=== PATIENT | male | born 1950 | race Caucasian/White ===

== ENCOUNTER → 2018-12-30 | Day surgery (SDC) | payer OTHER ==
[~2018-12-30] MED LIST: ATORVASTATIN CA10 MG PO; B&O 60MG R/S 60 MG SUPP PR ONE; CEFTRIAXONE SOD 1 GM/NS 50 ML 50 ML IV ONE; DIOVAN80 MG PO; FENTANYL CITRATE/PF 100MCG/2 ML INJ ONE; FLOMAX0.4 MG PO; GENTAMICIN 80MG/NS 100 ML 200 ML IV ONE; GLIMEPIRIDE2 MG PO; HYDROMORPHONE 2MG/ML 2 MG/ML ML ONE; IOPAMIDOL 610MG/1ML 300 MG/ML VIAL IV ONE; LIDOCAINE HCL 2% JELLY 5 ML TUBE ONE; LIDOCAINE HCL 2% LOCAL INJ 5 ML SDV VIAL INJ ONE; METFORMIN HCL500 MG PO; MIDAZOLAM HCL 2 MG/2 ML VIAL ONE; MONTELUKAST SOD10 MG PO; ONDANSETRON HCL INJ 2MG/ML 2ML 2 MG/ML VIAL ONE; PANTOPRAZOLE SO40 MG PO; PROPOFOL IV EMULSION 10 MG/ML 20 ML VIAL ONE; SEVOFLURANE INHAL SOLN 250 ML PEN BTL ONE
--- OUTSIDE RECORDS SUMMARY | 2018-12-30 06:02 | XMS REPORT | Summary of Care ---
Author Author [facility] - Health Organization [facility] - Health Address Unknown Phone Unavailable Care Team Providers Care Egg Processor Name Role Phone Pcp, Patient Does Not Have A PCP Reason for Referral * (Routine) Referred By Contact Referred To Contact Status Reason Specialty Diagnoses / Procedures Shilpa Cui MD [address] [place] [phone] New Request Vascular Surgery Diagnoses Claudication P rocedures ULTRASOUND AORTA BY VASCULAR LAB * (Routine) Referred By Contact Referred To Contact Status Reason Specialty Diagnoses / Procedures Shilpa Cui MD [address] [place] [address] 08829 New Request Vascular Surgery Diagnoses Claudication P rocedures SIVAKUMAR MULTI LEVEL BY VASCULAR LAB Reason for Visit * Reason Comments Evaluation New Patient Establish care Encounter Details Care Team Description Date Type Department Shilpa Cui MD [address] [place] [address] [id number] PAD (peripheral artery disease) (Primary Dx); Claudication; Cigarette smoker; Prediabetes; Hyperlipidemia, unspecified hyperlipidemia type; Obesity (BMI 30-39.9) 12/22/2018 Office Visit [facility]- [address] [address] Allergies Comments Active Allergy Reactions Severity Noted Date Sulfa (Sulfonamide Unknown - See 06/25/2018 Antibiotics) comments documented as of this encounter (statuses as of 12/22/2018) Medications End Date Status Medication Sig Dispensed Refills Start Date Active montelukast 10 mg Take 1 tablet 30 tablet 2 tabletIndications: Nasal by mouth 9 congestion daily. Active valsartan 160 mg tablet Take 160 mg 0 by mouth 9 daily. Active tamsulosin 0.4 mg 24 hr TAKE ONE capsule CAPSULE BY 9 MOUTH EVERY DAY 30 MINUTES AFTER SUPPER Active dutasteride 0.5 mg TAKE ONE 1 capsule CAPSULE BY 9 MOUTH EVERY DAY Active metformin ER 500 mg 24 hr TAKE 2 0 tablet TABLETS BY 9 MOUTH TWICE A DAY WITH FOOD Active glimepiride 4 mg tablet 1 TABLET WITH 0 BREAKFAST OR 9 THE FIRST MAIN MEAL OF THE DAY ONCE A DAY ORALLY 90 DAYS Active atorvastatin 40 mg Take 1 tablet 30 tablet 3 tabletIndications: PAD by mouth 9 (peripheral artery daily. disease) Active aspirin 81 mg EC Take 1 tablet 0 tabletIndications: PAD by mouth 9 (peripheral artery daily. disease) 12/22/2018 Discontinued atorvastatin 10 mg tablet Take 10 mg by 0 mouth daily. 9 documented as of this encounter (statuses as of 12/22/2018) Active Problems Not on filedocumented as of this encounter (statuses as of 12/22/2018) Social History Date Tobacco Use Types Packs/Day Years Used Current Every Day Smoker 1 50 Smokeless Tobacco: Never Used Drinks/Week oz/Week Comments Alcohol Use Never Alcohol Habits Answer Date Recorded How often do you have a drink containing alcohol? Never 12/22/2018 How many drinks containing alcohol do you have on Not asked a typical day when you are drinking? How often do you have six or more drinks on one Not asked occasion? Sex Assigned at Date Recorded Not on file Industry Job Start Date Occupation Not on file Not on file Not on file Travel End Travel History Travel Start No recent travel history available. documented as of this encounter Last Filed Vital Signs Reading Time Taken Comments Vital Sign 125/80 12/22/2018 1:38 PM CDT Blood Pressure 73 12/22/2018 1:38 PM CDT Pulse 36.7 C (98.1 F) 12/22/2018 1:38 PM CDT Temperature 16 12/22/2018 1:38 PM CDT Respiratory Rate 99% 12/22/2018 1:38 PM CDT Oxygen Saturation - - Inhaled Oxygen Concentration 95.1 kg (209 lb 11.2 oz) 12/22/2018 1:38 PM CDT Weight 177.8 cm (5' 10") 12/22/2018 1:38 PM CDT Height 30.09 12/22/2018 1:38 PM CDT Body Mass Index documented in this encounter Patient Instructions * Patient Instructions* Shilpa Cui MD - 12/22/2018 2:00 PM CDT Take aspirin 81 mg daily Increase atorvastatin to 40 mg daily documented in this encounter Progress Notes * Sharyn Lawrence - 12/22/2018 2:00 PM CDT 68 year old male has been identified by and name. Previous/Current Encounter Diagnosis: ICD-10-CM ICD-9-CM 1. PAD (peripheral artery disease) I73.9 443.9 2. Claudication I73.9 443.9 12 Lead EKG was performed as ordered. The patient tolerated the procedure well. was notified and provided with a copy of the EKG for review. * Shilpa uCi MD - 12/22/2018 2:00 PM CDT CARDIOLOGY CLINIC NOTE 12/22/2018 Reason for Referral/Presenting Complaint: PAD PCP: Dr. Coles History of Present Illness: Rashi Valle Jr. is a 68 years old male with history of current heavy smo nayan, prediabetes/DM, HLD, mild obesity etc. He is here for PAD evaluation. For the past 9 months he has been feeling leg/thigh fatigue with varying degree of a ctivities. No resting pain. ECHO was normal. LE arterial duplex showed abnormal flow velocity and Doppler waveforms. Review of Systems: General: (-) fever, (-) chills, (-) weight change, (-) dizziness, (-) fatigue Skin: (-) rash HEENT: (-) headache, (-) change in vision Neck: (-) difficulty swallowing Heme: negative Resp: (-) cough, (-) dyspnea on exertion Cardio: (-) chest pain, (-) palpitations, (-) syncope GI: (-) vomiting, (-) diarrhea : negative Endo: (-) diabetes, (-) thyroid disease Neuro: (-) numbness, (-) tingling, (-) weakness Back: (-) pain JACQUIE: (-) muscle pain, (+) claudication Psych: (-) anxiety, (-) depression Past Medical History: No past medical history on file. Current Medications: Current Outpatient Medications Medication Sig Dispense Refill aspirin 81 mg EC tablet Take 1 tablet by mouth daily. atorvastatin 40 mg tablet Take 1 tablet by mouth daily. 30 tablet 3 dutasteride 0.5 mg capsule TAKE ONE CAPSULE BY MOUTH EVERY DAY 1 glimepiride 4 mg tablet 1 TABLET WITH BREAKFAST OR THE FIRST MAIN MEAL OF ONCE A DAY ORALLY 90 DAYS 0 metformin ER 500 mg 24 hr tablet TAKE 2 TABLETS BY MOUTH TWICE A DAY WITH FO OD 0 valsartan 160 mg tablet Take 160 mg by mouth daily. 0 tamsulosin 0.4 mg 24 hr capsule TAKE ONE CAPSULE BY MOUTH EVERY DAY 30 MINUT ES AFTER SUPPER 1 montelukast 10 mg tablet Take 1 tablet by mouth daily. 30 tablet 2 No current facility-administered medications for this visit. Social History: Social History Socioeconomic History Marital status: Spouse name: Not on file Number of children: Not on file Years of education: Not on file Highest education level: Not on file Occupational History Not on file Social Needs Financial resource strain: Not on file Food insecurity: Worry: Not on file Inability: Not on file Transportation needs: Medical: Not on file Non-medical: Not on file Tobacco Use Smoking status: Current Every Day Smoker Packs/day: 1.00 Years: 50.00 Pack years: 50.00 Smokeless tobacco: Never Used Substance and Sexual Activity Alcohol use: Never Frequency: Never Drug use: Never Sexual activity: Not on file Lifestyle Physical activity: Days per week: Not on file Minutes per session: Not on file Stress: Not on file Relationships Social connections: Talks on phone: Not on file Gets together: Not on file Attends mu-ism service: Not on file Active member of club or organization: Not on file Attends meetings of clubs or organizations: Not on file Relationship status: Not on file Intimate partner violence: Fear of current or ex partner: Not on file Emotionally abused: Not on file Physically abused: Not on file Forced sexual activity: Not on file Other Topics Concern Not on file Social History Narrative Not on file Family History Family History Problem Relation Age of Onset No Significant Medical Problems Mother No Significant Medical Problems Father Physical Examination: BP 125/80 (BP Location: Right arm, Patient Position: Sitting, BP CUFF SIZE: Adul t Medium) | Pulse 73 | Temp 36.7 C (98.1 F) (Temporal Artery) | Resp 16 | Ht 5' 10" (1.778 m) | Wt 209 lb 11.2 oz (95.1 kg) | SpO2 99% | BMI 30.09 kg /m Constitutional: alert and oriented x 3 (person, place and date/time); no apparen t distress ENT: normocephalic atraumatic, supple, no lymphadenopathy, no bruits, no JVD Lungs: clear to auscultation bilaterally Cardiovascular: S1, S2 normal, regular; no murmurs, rubs or gallops GI: soft; non-tender; non-distended; normoactive bowel sounds : not examined Musculoskeletal: Extremities: no clubbing, cyanosis, or edema, diminished ankle and pedal pulses on the left side Skin: no rashes Neuro: no focal deficits Cardiovascular testing: EKG: Normal sinus rhythm. Normal EKG. Echocardiogram: OSH 2019--Normal LVEF. Normal valves. LE arterial duplex--Low velocity with biphasic Doppler waveform. Moderate to sev ere PAD. Assessment/Plan: ICD-10-CM ICD-9-CM 1. PAD (peripheral artery disease) I73.9 443.9 2. Claudication I73.9 443.9 3. Cigarette smoker F17.210 305.1 4. Prediabetes R73.03 790.29 5. Hyperlipidemia, unspecified hyperlipidemia type E78.5 272.4 6. Obesity (BMI 30-39.9) E66.9 278.00 PAD--Heavy smoker. Bilateral claudication. Reduced ankle pulses. Arterial duplex showed reduced blood flow. However there is no increased velocity in the legs. Suspect inflow disease. Will get Aorta US to assess distal aorta and iliac arter y. Will get SIVAKUMAR as well. Advised to add ASA 81 mg daily. Will increase Lipitor t o 40 mg daily. May need Vascular Surgery referral after testing. Smoking cessation education--4 mins. He will reduce cigs. Patient was counseled for lifestyle modifications including: diet, exercise, yehuda ght loss and smoking cessation. RTC 3 months Thank you for allowing us to participate in the care of your patient. Please fee l free to contact us for any questions or if we can be of further assistance. Shilpa Cui MD, [facility], [facility] [employer], Division of Cardiology [facility] ; Pager documented in this encounter Plan of Treatment Care Team Description Date Type Specialty Shilpa Cui MD [address] [place] [phone] 03/30/2019 Office Visit Cardiology Health Maintenance Due Date Last Done Comments HEPATITIS C (HCV) SCREEN 1950 DTaP,Tdap,and Td Vaccines 09/09/1971 (1 - Tdap) COLONOSCOPY 2002 Zoster Recombinant 2002 Vaccine (SHINGRIX) (1 of 2) Medicare Wellness Visit 2017 PNEUMOCOCCAL VACCINES 65+ 2017 (1 of 2 - PCV13) INFLUENZA VACCINE 01/22/2019 documented as of this encounter Results Not on filedocumented in this encounter Visit Diagnoses Diagnosis PAD (peripheral artery disease) - Primary Unspecified disorders of arteries and arterioles Claudication Peripheral vascular disease, unspecified Cigarette smoker Tobacco use disorder Prediabetes Other abnormal glucose Hyperlipidemia, unspecified hyperlipidemia type Obesity (BMI 30-39.9) Obesity, unspecified documented in this encounter Insurance Type Payer Benefit Subscriber ID Effective Phone Address Plan / Dates Group HMO/PPO/POS [facility] [id number] 2018- SERVICES HEALTHCARE Present SHARED SERVICE (Home) [place] [address] documented as of this encounter
--- OUTSIDE RECORDS SUMMARY | 2018-12-30 06:02 | XMS REPORT | Summary of Care ---
Author Author [facility] - Health Organization [facility] - Health Address Unknown Phone Unavailable Care Team Providers Care Pipe Organ Mechanic Apprentice Name Role Phone Pcp, Patient Does Not Have A PCP Reason for Visit * Reason Comments Refill Request Encounter Details Care Team Description Date Type Department Lilian Rojas PA-C [address] [id number] Refill Request 12/20/2018 Refill [facility]- [address] [phone] Allergies Comments Active Allergy Reactions Severity Noted Date Sulfa (Sulfonamide Unknown - See 06/25/2018 Antibiotics) comments documented as of this encounter (statuses as of 12/24/2018) Medications End Date Status Medication Sig Dispensed Refills Start Date Active montelukast 10 mg Take 1 tablet 30 tablet 2 tabletIndications: Nasal by mouth 9 congestion daily. documented as of this encounter (statuses as of 12/24/2018) Active Problems Not on filedocumented as of this encounter (statuses as of 12/24/2018) Social History Date Tobacco Use Types Packs/Day Years Used Never Assessed Sex Assigned at Date Recorded Not on file Industry Job Start Date Occupation Not on file Not on file Not on file Travel End Travel History Travel Start No recent travel history available. documented as of this encounter Last Filed Vital Signs Not on filedocumented in this encounter Plan of Treatment Care Team Description Date Type Specialty Shilpa Cui MD [address] [facility] [address] [place] [phone] 03/30/2019 Office Visit Cardiology Health Maintenance Due Date Last Done Comments HEPATITIS C (HCV) SCREEN 1950 DTaP,Tdap,and Td Vaccines 09/09/1971 (1 - Tdap) COLONOSCOPY 2002 Zoster Recombinant 2002 Vaccine (SHINGRIX) (1 of 2) LUNG CANCER SCREEN: 09/09/2007 Recommended for age 55-80 with 30 + pack year history Medicare Wellness Visit 2017 PNEUMOCOCCAL VACCINES 65+ 2017 (1 of 2 - PCV13) INFLUENZA VACCINE 01/22/2019 documented as of this encounter Results Not on filedocumented in this encounter Visit Diagnoses Diagnosis Nasal congestion Other diseases of nasal cavity and sinuses documented in this encounter Insurance Type Payer Benefit Subscriber ID Effective Phone Address Plan / Dates Group HMO/PPO/POS [facility] [id number] 2018- SERVICES HEALTHCARE Present SHARED SERVICE documented as of this encounter
--- OUTSIDE RECORDS SUMMARY | 2018-12-30 06:02 | XMS REPORT | Summary of Care ---
Author Author [facility] - Health Organization [facility] - Health Address Unknown Phone Unavailable Care Team Providers Care Bonderite Operator Name Role Phone Pcp, Patient Does Not Have A PCP Encounter Details Care Team Description Date Type Department Doctor Unassigned, [place] [address] [place] [phone] 12/22/2018 Orders Only [facility] [address] [place] [address] Allergies Comments Active Allergy Reactions Severity Noted [...] Description Date Type Specialty Shilpa Cui MD [address] [place] [address] [address] [place], [place] [address] 12/22/2018 Office Visit Cardiology Health Maintenance Due Date Last Done Comments HEPATITIS C (HCV) SCREEN 1950 DTaP,Tdap,and Td Vaccines 09/09/1971 (1 - Tdap) COLONOSCOPY 2002 Zoster Recombinant 2002 Vaccine (SHINGRIX) (1 of 2) Medicare Wellness Visit 2017 PNEUMOCOCCAL VACCINES 65+ 2017 (1 of 2 - PCV13) INFLUENZA VACCINE 01/22/2019 documented as of this encounter Procedures Comments Procedure Name Priority Date/Time Associated Diagnosis NO SHOW OR MISSED Routine 12/22/2018 APPOINTMENT POLICY 1:36 PM CDT ACKNOWLEDGEMENT documented in this encounter Results Not on filedocumented in this encounter Insurance Type Payer Benefit Subscriber ID Effective Phone Address Plan / Dates Group HMO/PPO/POS [facility] [id number] 2018- SERVICES HEALTHCARE Present SHARED SERVICE documented as of this encounter
--- OUTSIDE RECORDS SUMMARY | 2018-12-30 06:02 | XMS REPORT | Summary of Care ---
Author Author [facility] - Health Organization [facility] - Health Address Unknown Phone Unavailable Care Team Providers Care Block Cableman Name Role Phone Pcp, Patient Does Not Have A PCP Encounter Details Care Team Description Date Type Department Doctor Unassigned, [place] [address] [place] [phone] 08/23/2018 Orders Only [facility] [address] [place] [address] Allergies Comments Active Allergy Reactions Severity Noted Date Sulfa (Sulfonamide Unknown - See 06/25/2018 Antibiotics) comments documented as of this encounter (statuses as of 12/23/2018) Medications End Date Status Medication Sig Dispensed Refills Start Date Active montelukast 10 mg Take 1 tablet 30 tablet 2 tabletIndications: Nasal by mouth 9 congestion daily. documented as of this encounter (statuses as of 12/23/2018) Active Problems Not on filedocumented as of this encounter (statuses as of 12/23/2018) Social History Date Tobacco Use Types Packs/Day [...] Description Date Type Specialty Shilpa Cui MD [address] [place] [address] [address] [place], [place] [phone] 03/30/2019 Office Visit Cardiology Health Maintenance Due [...] Comments Procedure Name Priority Date/Time Associated Diagnosis REFERRAL- Routine 08/23/2018 REQUEST/RESPONSE 12:01 AM CDT documented in this encounter Results Not on filedocumented in this encounter Insurance Type Payer Benefit Subscriber ID Effective Phone Address Plan / Dates Group HMO/PPO/POS [facility] [id number] 2018- SERVICES HEALTHCARE Present SHARED SERVICE documented as of this encounter
--- OUTSIDE RECORDS SUMMARY | 2018-12-30 06:02 | XMS REPORT ---
Author [facility] Address Unknown Phone Unavailable Care Team Providers Care Manager Cost Name Role Phone LAWRENCE MANN Unavailable Unavailable Problems This patient has no known problems. Allergies, Adverse Reactions, Alerts This patient has no known allergies or adverse reactions. Medications This patient has no known medications. Results Test Description Test Time Test Comments Text Results Atomic Results Result Comments CHEST 2 VIEWS 2018-11-15 15:47:00 [place] [address] Patient Name: MAE NUGENT JR MR #: [id number] : 1950 Age/Sex: 68/M Req #: [id number] [facility] Physician: Ordered by: LAWRENCE MANN MD Report #: [id number] Location: OR Room/Bed: Procedure: [id number] DX/CHEST 2 VIEWS Exam Date: 11/15/18 Exam Time: 1537 REPORT STATUS: Signed EXAM: CHEST 2 VIEWS, PA and lateral DATE: 11/15/2018 Time stamp on exam: 3:32 PM INDICATION: Preoperative COMPARISON: None FINDINGS: LINES/TUBES: None LUNGS: Lungs are mildly hyperexpanded. No consolidations or edema. Calcified granuloma in the right upper lobe. PLEURA: No effusions or pneumothorax. HEART AND MEDIASTINUM: Normal size and contour. BONES AND SOFT TISSUES: No acute findings. Degenerative changes of the spine. IMPRESSION: No acute thoracic abnormality. Signed by: Dr. Salvador Moody DO on 11/15/2018 3:48 PM Dictated By: SALVADOR MOODY DO 1548 Transcribed By: EVELINE on 11/15/18 1548 COPY TO: LAWRENCE MANN MD
--- OUTSIDE RECORDS SUMMARY | 2018-12-30 06:02 | XMS REPORT | Summary of Care ---
Author Author [facility] - Health Organization [facility] - Health Address Unknown Phone Unavailable Care Team Providers Care Customer Service Technician Name Role Phone Pcp, Patient Does Not Have A PCP Reason for Referral * (Routine) Referred By Contact Referred To Contact Status Reason Specialty Diagnoses / Procedures Shilpa Cui MD [address] [place] [phone] New Request Vascular Surgery Diagnoses Claudication P rocedures ULTRASOUND AORTA BY VASCULAR LAB * (Routine) Referred By Contact Referred To Contact Status Reason Specialty Diagnoses / Procedures Shilpa Cui MD [address] [place] [phone] New Request Vascular Surgery Diagnoses Claudication P rocedures SIVAKUMAR MULTI LEVEL BY VASCULAR LAB Reason for Visit * Reason Comments Evaluation New Patient Establish care Encounter Details Care Team Description Date Type Department Shilpa Cui MD [address] [place] [address] [phone] PAD (peripheral artery disease) (Primary Dx); Claudication; Cigarette smoker; Prediabetes; Hyperlipidemia, unspecified hyperlipidemia type; Obesity (BMI 30-39.9) 12/22/2018 Office Visit [facility] [address] [phone] Allergies Comments Active Allergy Reactions Severity Noted [...] of the EKG for review. * Shilpa Cui MD - 12/22/2018 2:00 PM CDT CARDIOLOGY [...] file Gets together: Not on file Attends restorationism service: Not on file Active member of [...] be of further assistance. Shilpa Cui MD, [facility], [place] [place], Division of Cardiology [facility] ; Pager documented in this encounter Plan of Treatment Care Team Description Date Type Specialty Shilpa Cui MD [address] [place] [phone] 03/30/2019 Office Visit Cardiology Health Maintenance [...] Phone Address Plan / Dates Group HMO/PPO/POS [facility] [id number] 2018- SERVICES HEALTHCARE Present SHARED SERVICE (Home) [place] [address] documented as of this encounter
[2018-12-30 07:10] LABS: BASOPHILS # (AUTO) 0.1 (0.0-0.1); BASOPHILS % 1.1 % (0.0-1.0); EOSINOPHILS # (AUTO) 0.4 (0.0-0.4); HEMATOCRIT 51.9 % (38.2-49.6); HEMOGLOBIN 17.5 g/dL (14.0-18.0); LYMPHOCYTES # (AUTO) 2.3 (1.0-3.2); LYMPHOCYTES % 27.5 % (18.0-39.1); MEAN CORPUSCULAR HEMOGLOBIN 30.3 pg (28-32); MEAN CORPUSCULAR HGB CONC 33.7 g/dL (31-35); MEAN CORPUSCULAR VOLUME 89.9 fL (81-99); MONOCYTES # (AUTO) 0.7 (0.2-0.8); NEUTROPHILS # (AUTO) 4.7 (2.1-6.9); PLATELET COUNT 175 x10e3/uL (140-360); RED BLOOD COUNT 5.77 x10e6/uL (4.3-5.7); RED CELL DISTRIBUTION WIDTH 12.7 % (11.7-14.4)
[2018-12-30 07:29] LABS: ANION GAP 13.1 mmol/L (8-16); BLOOD UREA NITROGEN 13 mg/dL (7-26); BUN/CREATININE RATIO 15 (6-25); CALCIUM 9.8 mg/dL (8.4-10.2); CARBON DIOXIDE 25 mmol/L (22-29); CHLORIDE 106 mmol/L (98-107); CREATININE, SERUM 0.86 mg/dL (0.72-1.25); EST GLOMERULAR FILTRATION RATE > 60 ML/MIN (60-); GLUCOSE 146 mg/dL (74-118); POTASSIUM 4.1 mmol/L (3.5-5.1); SODIUM 140 mmol/L (136-145)
[2018-12-30 10:30] VITALS: BP 121/79
--- NOTE | 2019-02-21 04:40 | Operative Report ---
DATE OF PROCEDURE: 12/30/2018 SURGEON: Hugh Little MD PREOPERATIVE DIAGNOSES: 1. Obstructive benign prostatic hypertrophy. 2. History of urinary tract infections. 3. History of urolithiasis. POSTOPERATIVE DIAGNOSES: 1. Obstructive benign prostatic hypertrophy. 2. History of urinary tract infections. 3. History of urolithiasis. OPERATION PERFORMED: 1. Cystourethroscopy with bilateral ureteral catheterization and retrograde ureteropyelography (separate procedure performed for urinary tract infections and urolithiasis). 2. Interpretation of retrograde ureteropyelography. 3. Supervision of fluoroscopy, no radiologist present. 4. Cystourethroscopy with implantation of 4 UroLift implants (separate procedure performed for the BPH). ANESTHESIA: General. COMPLICATIONS: None. CLINICAL SUMMARY: Rashi Valle is a 68-year-old male with a history of urolithiasis. He has a history of right renal cell carcinoma as well. He has history of elevated PSA, status post negative prostate biopsies. His symptomatic BPH and is brought for the above procedures. He is aware of the risks of bleeding, infection, injury to adjacent structures, need for additional procedures, and elected to proceed. OPERATIVE PROCEDURE IN DETAIL: Informed consent was verified. Rashi Valle was properly identified, taken to the operating room, and placed on the cystoscopy table in supine position. Anesthesia was uneventfully begun. The patient was then carefully and gently repositioned in the dorsal lithotomy position with all pressure points well padded. His genitalia were prepared and draped in usual sterile fashion. A 22.5-Rwandan cystoscope sheath with the visual obturator in place was atraumatically inserted into the patient's urethra, was guided down unremarkably urethra through the normal sphincteric region through the prostate bed, which was significant for bilobar prostatic hypertrophy with kissing lateral lobes. We entered the patient's bladder and drained it. Panendoscopy revealed fine sands throughout the bladder with no large stones and no tumors. Grade 2 trabeculations were noted. The sand was evacuated from the bladder. An 8-Rwandan catheter was used to cannulate each ureter and retrograde ureteropyelogram was performed. Interpretation of retrograde ureteropyelography contrast was instilled in retrograde fashion bilaterally. There were no tumors, no stones, and no diverticula. Unobstructed drainage was observed bilaterally fluoroscopically. The cystoscope was withdrawn. The 20-Rwandan cystoscope sheath with the visual obturator in place was atraumatically inserted. We deployed 4 UroLift implants. We deployed anterolaterally on each side, 2 were placed 1.5 cm distal to the bladder neck and 2 were placed at the level of the verumontanum. This resulted in continuous anterior channel, which was open. There was oozing from the prostate bed in the location of the UroLift implants. Therefore, an 18-Rwandan coude tip Sheikh catheter was placed. It was irrigated to and fro. Belladonna and opium suppository were placed revealing a 40 g prostate, that was smooth and nonfluctuant without any nodules. The patient was then uneventfully reversed from anesthesia and taken to recovery room in stable condition. There were no complications to the procedure. The patient tolerated the procedure well. Estimated blood loss was minimum. Exclusive postop instructions were given. We will follow the patient up in the office. At which point in time, we will perform uroflowmetry and bladder ultrasonography. Hugh Little MD [place]/MODL /[id number]
== END | disposition home or self-care (01) ==
LOC: OR 05:59
PROVIDERS: ATTEND Urology
DX: N40.0 Benign prostatic hyperplasia without lower urinary tract symptoms (principal); N13.8 Other obstructive and reflux uropathy; N32.89 Other specified disorders of bladder; G47.33 Obstructive sleep apnea (adult) (pediatric); I10 Essential (primary) hypertension; E11.9 Type 2 diabetes mellitus without complications; K21.9 Gastro-esophageal reflux disease without esophagitis; Z88.2 Allergy status to sulfonamides; F17.210 Nicotine dependence, cigarettes, uncomplicated; Z87.440 Personal history of urinary (tract) infections; Z87.442 Personal history of urinary calculi; Z85.528 Personal history of other malignant neoplasm of kidney; Z79.84 Long term (current) use of oral hypoglycemic drugs
CPT/HCPCS: 52005; C9740; 36415; 74420; 80048; 85025; C1758; J0696; J1580; J2001; J2250; J2405; J3010; L8699

== ENCOUNTER 2021-01-06 05:30 | Inpatient (IN) | payer MEDICARE, OTHER ==
[2021-01-03 09:39] LABS: BASOPHILS # (AUTO) 0.1 (0.0-0.1); BASOPHILS % 0.8 % (0.0-1.0); EOSINOPHILS # (AUTO) 0.2 (0.0-0.4); EOSINOPHILS % 2.3 % (0.0-6.0); HEMATOCRIT 52.1 % (38.2-49.6); HEMOGLOBIN 17.1 g/dL (14.0-18.0); LYMPHOCYTES # (AUTO) 2.5 (1.0-3.2); LYMPHOCYTES % 23.4 % (18.0-39.1); MEAN CORPUSCULAR HEMOGLOBIN 30.5 pg (28-32); MEAN CORPUSCULAR HGB CONC 32.8 g/dL (31-35); MEAN CORPUSCULAR VOLUME 92.9 fL (81-99); MONOCYTES # (AUTO) 0.7 (0.2-0.8); MONOCYTES % 6.5 % (4.4-11.3); NEUTROPHILS # (AUTO) 7.1 (2.1-6.9); NEUTROPHILS % 66.7 % (38.7-80.0); PLATELET COUNT 198 x10e3/uL (140-360); RED BLOOD COUNT 5.61 x10e6/uL (4.3-5.7); RED CELL DISTRIBUTION WIDTH 12.9 % (11.7-14.4)
[2021-01-03 10:14] LABS: ANION GAP 16.3 mmol/L (8-16); CALCIUM 9.5 mg/dL (8.4-10.2); CREATININE, SERUM 0.95 mg/dL (0.72-1.25); POTASSIUM 4.3 mmol/L (3.5-5.1)
[~2021-01-06] VITALS: Ht 177.8 cm; Wt 89.8 kg
[~2021-01-06 05:30] MED LIST changes: +AMLODIPINE BESYL5 MG PO; +ASPIRIN81 MG PO; +AVODART0.5 MG PO; -B&O 60MG R/S 60 MG SUPP PR ONE; -CEFTRIAXONE SOD 1 GM/NS 50 ML 50 ML IV ONE; +CETIRIZINE HCL10 M1 PO; -FENTANYL CITRATE/PF 100MCG/2 ML INJ ONE; -GENTAMICIN 80MG/NS 100 ML 200 ML IV ONE; -HYDROMORPHONE 2MG/ML 2 MG/ML ML ONE; -IOPAMIDOL 610MG/1ML 300 MG/ML VIAL IV ONE; +KEPPRA500 MG PO; -LIDOCAINE HCL 2% JELLY 5 ML TUBE ONE; -LIDOCAINE HCL 2% LOCAL INJ 5 ML SDV VIAL INJ ONE; -MIDAZOLAM HCL 2 MG/2 ML VIAL ONE; -ONDANSETRON HCL INJ 2MG/ML 2ML 2 MG/ML VIAL ONE; -PROPOFOL IV EMULSION 10 MG/ML 20 ML VIAL ONE; -SEVOFLURANE INHAL SOLN 250 ML PEN BTL ONE
[2021-01-06] MEDS ORDERED: CEFTRIAXONE 1 GM VIAL ONE (06:08)
[2021-01-06] MEDS ORDERED: SODIUM CHLORIDE 0.9% 50ML 50 ML ONE (06:09)
[2021-01-06] MEDS ORDERED: GENTAMICIN 80MG/NS 100 ML 200 ML IV ONE (06:09)
[2021-01-06] MEDS ORDERED: SODIUM CHLORIDE 0.9% 1000ML 1,000 ML ONE (06:09)
[2021-01-06] MEDS ORDERED: BELLADONNA/OPIUM 30 MG SUPP RC ONE (06:33)
[2021-01-06] MEDS ORDERED: IOPAMIDOL 300MG/ML 50ML INFUS..BTL IV ONE (06:33)
[2021-01-06] MEDS ORDERED: ACETAMINOPHEN/CODEINE 300MG - 30MG TAB PO PRN (09:00)
[2021-01-06] MEDS ORDERED: ONDANSETRON HCL INJ 2MG/ML 2ML 2 MG/ML VIAL IV PRN (09:00)
[2021-01-06] MEDS ORDERED: PHENAZOPYRIDINE HCL 100 MG TAB PO PRN (09:00)
[2021-01-06] MEDS ORDERED: DIPHENHYDRAMINE HCL 25 MG CAP PO PRN (09:00)
[2021-01-06] MEDS: DOCUSATE SODIUM 100 MG CAP PO SCH ×2 (09:00→16:28)
[2021-01-06] MEDS ORDERED: B&O 60MG R/S 60 MG SUPP PR PRN (09:00)
[2021-01-06] MEDS ORDERED: FENTANYL CITRATE/PF 100MCG/2 ML INJ ONE (09:26)
[2021-01-06 10:21] VITALS: BP 157/76
[2021-01-06 10:24] VITALS: BP 157/76
[2021-01-06 10:27] VITALS: BP 157/76
[2021-01-06] MEDS ORDERED: DEXTROSE 50% SYRINGE 50 ML IV PRN (11:15)
[2021-01-06] MEDS: INSULIN LISPRO 100 UNIT/1 ML 3ML VIAL SQ SCH ×3 (11:30→20:05)
[2021-01-06] MEDS: SOD CHL 0.45%/POT CHL 20MEQ 1,000 ML IV SCH ×3 (11:40→20:19)
[2021-01-06 12:33] LABS: BASOPHILS # (AUTO) 0.1 (0.0-0.1); BASOPHILS % 0.4 % (0.0-1.0); EOSINOPHILS % 0.1 % (0.0-6.0); HEMOGLOBIN 16.8 g/dL (14.0-18.0); LYMPHOCYTES # (AUTO) 1.1 (1.0-3.2); LYMPHOCYTES % 9.4 % (18.0-39.1); MEAN CORPUSCULAR HEMOGLOBIN 30.6 pg (28-32); MEAN CORPUSCULAR HGB CONC 32.9 g/dL (31-35); MEAN CORPUSCULAR VOLUME 92.9 fL (81-99); MONOCYTES # (AUTO) 0.2 (0.2-0.8); MONOCYTES % 1.4 % (4.4-11.3); NEUTROPHILS # (AUTO) 10.2 (2.1-6.9); NEUTROPHILS % 88.2 % (38.7-80.0); PLATELET COUNT 186 x10e3/uL (140-360); RED BLOOD COUNT 5.49 x10e6/uL (4.3-5.7); RED CELL DISTRIBUTION WIDTH 12.6 % (11.7-14.4)
[2021-01-06 12:53] LABS: ANION GAP 16.4 mmol/L (8-16); CALCIUM 8.7 mg/dL (8.4-10.2); CREATININE, SERUM 0.88 mg/dL (0.72-1.25); POTASSIUM 4.4 mmol/L (3.5-5.1)
[2021-01-06 14:48] VITALS: BP 145/78
[2021-01-06] MEDS: LEVETIRACETAM 500 MG TAB PO SCH (16:28)
[2021-01-06] MEDS: METFORMIN HCL 500 MG TAB PO SCH (16:28)
[2021-01-06] MEDS: TAMSULOSIN HCL 0.4 MG CAP PO SCH (16:28)
[2021-01-06 20:14] VITALS: BP 130/66
[2021-01-06] MEDS: ATORVASTATIN 20 MG TAB PO SCH (20:14)
[2021-01-06 20:27] VITALS: BP 130/66
[2021-01-07] VITALS (8 sets, daily range): BP systolic 132–167; BP diastolic 69–98
[2021-01-07] MEDS: SOD CHL 0.45%/POT CHL 20MEQ 1,000 ML IV SCH (04:23)
[2021-01-07 05:04] LABS: BASOPHILS % 0.2 % (0.0-1.0); EOSINOPHILS % 0.2 % (0.0-6.0); HEMATOCRIT 46.7 % (38.2-49.6); HEMOGLOBIN 15.5 g/dL (14.0-18.0); LYMPHOCYTES % 12.2 % (18.0-39.1); MEAN CORPUSCULAR HEMOGLOBIN 30.4 pg (28-32); MEAN CORPUSCULAR HGB CONC 33.2 g/dL (31-35); MEAN CORPUSCULAR VOLUME 91.6 fL (81-99); MONOCYTES # (AUTO) 1.3 (0.2-0.8); MONOCYTES % 7.5 % (4.4-11.3); NEUTROPHILS # (AUTO) 13.3 (2.1-6.9); NEUTROPHILS % 79.4 % (38.7-80.0); PLATELET COUNT 200 x10e3/uL (140-360); RED CELL DISTRIBUTION WIDTH 12.6 % (11.7-14.4)
[2021-01-07 05:37] LABS: CALCIUM 8.2 mg/dL (8.4-10.2); CREATININE, SERUM 0.83 mg/dL (0.72-1.25)
[2021-01-07] MEDS: INSULIN LISPRO 100 UNIT/1 ML 3ML VIAL SQ SCH ×4 (07:30→22:17)
[2021-01-07] MEDS: METFORMIN HCL 500 MG TAB PO SCH ×2 (08:15→16:20)
[2021-01-07] MEDS: LEVETIRACETAM 500 MG TAB PO SCH ×2 (08:15→16:20)
[2021-01-07] MEDS: AMLODIPINE BESYLATE 5 MG TAB PO SCH (08:15)
[2021-01-07] MEDS: DOCUSATE SODIUM 100 MG CAP PO SCH ×2 (08:15→16:12)
[2021-01-07] MEDS: TAMSULOSIN HCL 0.4 MG CAP PO SCH ×2 (08:15→16:20)
[2021-01-07] MEDS: PANTOPRAZOLE SOD 40 MG TABEC PO SCH (08:15)
[2021-01-07] MEDS: CEFTRIAXONE 1 GM in SODIUM CHLORIDE 0.9% 50ML 50 ML IV SCH (08:15)
[2021-01-07] MEDS: VALSARTAN 80 MG TAB PO SCH (08:15)
[2021-01-07] MEDS: DUTASTERIDE 0.5 MG CAP PO SCH (08:15)
[2021-01-07] MEDS ORDERED: ONDANSETRON HCL 4 MG ORAL DISINTEGRATING TAB PO PRN (08:30)
[2021-01-07] MEDS: SODIUM CHLORIDE 0.45% 1,000 ML IV SCH ×2 (09:18→22:16)
[2021-01-07] MEDS: ATORVASTATIN 20 MG TAB PO SCH (22:16)
[2021-01-08 00:08] VITALS: BP 141/70
[2021-01-08 04:41] VITALS: BP 138/79
[2021-01-08 04:52] LABS: BASOPHILS # (AUTO) 0.1 (0.0-0.1); BASOPHILS % 0.9 % (0.0-1.0); EOSINOPHILS # (AUTO) 0.2 (0.0-0.4); EOSINOPHILS % 2.2 % (0.0-6.0); HEMATOCRIT 46.3 % (38.2-49.6); HEMOGLOBIN 15.3 g/dL (14.0-18.0); LYMPHOCYTES # (AUTO) 3.2 (1.0-3.2); LYMPHOCYTES % 30.8 % (18.0-39.1); MEAN CORPUSCULAR HEMOGLOBIN 30.5 pg (28-32); MEAN CORPUSCULAR VOLUME 92.4 fL (81-99); MONOCYTES % 9.7 % (4.4-11.3); NEUTROPHILS # (AUTO) 5.8 (2.1-6.9); NEUTROPHILS % 56.1 % (38.7-80.0); PLATELET COUNT 185 x10e3/uL (140-360); RED BLOOD COUNT 5.01 x10e6/uL (4.3-5.7); RED CELL DISTRIBUTION WIDTH 13.1 % (11.7-14.4)
[2021-01-08 05:27] LABS: ANION GAP 11.8 mmol/L (8-16); CALCIUM 8.6 mg/dL (8.4-10.2); CREATININE, SERUM 0.83 mg/dL (0.72-1.25); POTASSIUM 3.8 mmol/L (3.5-5.1)
[2021-01-08 05:47] LABS: MAGNESIUM 1.7 MG/DL (1.3-2.1); PHOSPHORUS 3.1 MG/DL (2.3-4.7)
[2021-01-08] MEDS: INSULIN LISPRO 100 UNIT/1 ML 3ML VIAL SQ SCH ×3 (07:30→17:30)
[2021-01-08 08:57] VITALS: BP 128/81
[2021-01-08] MEDS: LEVETIRACETAM 500 MG TAB PO SCH ×2 (09:00→17:00)
[2021-01-08] MEDS: PANTOPRAZOLE SOD 40 MG TABEC PO SCH (09:00)
[2021-01-08] MEDS: TAMSULOSIN HCL 0.4 MG CAP PO SCH ×2 (09:00→17:00)
[2021-01-08] MEDS: AMLODIPINE BESYLATE 5 MG TAB PO SCH (09:00)
[2021-01-08] MEDS: METFORMIN HCL 500 MG TAB PO SCH ×2 (09:00→17:00)
[2021-01-08] MEDS: DUTASTERIDE 0.5 MG CAP PO SCH (09:00)
[2021-01-08] MEDS: CEFTRIAXONE 1 GM in SODIUM CHLORIDE 0.9% 50ML 50 ML IV SCH (09:00)
[2021-01-08] MEDS: VALSARTAN 80 MG TAB PO SCH (09:00)
[2021-01-08] MEDS: DOCUSATE SODIUM 100 MG CAP PO SCH ×2 (09:00→17:00)
[2021-01-08 09:20] VITALS: BP 128/81
[2021-01-08] MEDS: SODIUM CHLORIDE 0.45% 1,000 ML IV SCH (09:47)
[2021-01-08 12:55] VITALS: BP 145/79
[2021-01-08 16:35] VITALS: BP 117/89
== END 2021-01-08 18:43 | disposition home or self-care (01) | DRG 714 ==
LOC: OR 05:30 → PACU V 08:54 → MED/SURG 10:13
PROVIDERS: ADMIT Internal Medicine; ATTEND Internal Medicine
PROC: 0VB08ZZ Excision of Prostate, Via Natural or Artificial Opening Endoscopic (ICD-10-PCS; 2021-01-06)
PROC: 0T7D8ZZ Dilation of Urethra, Via Natural or Artificial Opening Endoscopic (ICD-10-PCS; 2021-01-06)
PROC: 0T788ZZ Dilation of Bilateral Ureters, Via Natural or Artificial Opening Endoscopic (ICD-10-PCS; principal; 2021-01-06 07:00)
PROC: BT14ZZZ Fluoroscopy of Kidneys, Ureters and Bladder (ICD-10-PCS; 2021-01-06 07:00)
DX: N40.0 Benign prostatic hyperplasia without lower urinary tract symptoms (principal); R33.9 Retention of urine, unspecified; N35.819 Other urethral stricture, male, unspecified site; N40.1 Benign prostatic hyperplasia with lower urinary tract symptoms; R39.14 Feeling of incomplete bladder emptying; I10 Essential (primary) hypertension; R91.1 Solitary pulmonary nodule; K21.9 Gastro-esophageal reflux disease without esophagitis; E78.00 Pure hypercholesterolemia, unspecified; G47.33 Obstructive sleep apnea (adult) (pediatric); E11.51 Type 2 diabetes mellitus with diabetic peripheral angiopathy without gangrene; Z79.899 Other long term (current) drug therapy; Z20.822 Contact with and (suspected) exposure to COVID-19
CPT/HCPCS: 36415; 71046; 74420; 80048; 82948; 83735; 84100; 85025; 93005; C1758; J0696; J1580; J3010; J7030; U0002

== ENCOUNTER 2025-01-15 05:20 | Inpatient (IN) | payer MEDICARE, OTHER ==
[2025-01-12 11:58] LABS: BASOPHILS % 1.0 % (0.0-1.0); EOSINOPHILS % 8.5 % (0.0-6.0); LYMPHOCYTES % 31.7 % (18.0-39.1); MONOCYTES % 11.0 % (4.4-11.3); NEUTROPHILS % 47.7 % (38.7-80.0); RED CELL DISTRIBUTION WIDTH 12.9 % (11.7-14.4)
[2025-01-12 12:37] LABS: EST GLOMERULAR FILTRATION RATE 67.0 ML/MIN (>=60)
[~2025-01-15] VITALS: Ht 177.8 cm; Wt 85.5 kg
[2025-01-15] VITALS (8 sets, daily range): BP systolic 107–129; BP diastolic 56–65; PULSE 65–86; RESP 16–19; TEMP 97.5–99.8; O2SAT 92–96
[~2025-01-15 05:20] MED LIST changes: +LOPID600 MG PO; +MULTI-VITAMIN1 EACH PO; +PEPCID AC10 MG PO
[2025-01-15] MEDS: CEFTRIAXONE 1 GM VIAL ONE ×2 (05:55→10:29)
[2025-01-15] MEDS: GENTAMICIN 80MG/NS 100 ML 200 ML IV ONE (05:56)
[2025-01-15] MEDS: SODIUM CHLORIDE 0.9% 1000ML 1,000 ML ONE (05:56)
[2025-01-15] MEDS ORDERED: ROCURONIUM BROMIDE 1 ML IV ONE (06:51)
[2025-01-15] MEDS ORDERED: LIDOCAINE HCL 2% LOCAL INJ 5 ML SDV VIAL INJ ONE (06:51)
[2025-01-15] MEDS ORDERED: SEVOFLURANE INHAL SOLN 250 ML PEN BTL ONE (06:51)
[2025-01-15] MEDS ORDERED: FENTANYL CITRATE/PF 100MCG/2 ML INJ ONE ×2 (06:51→07:39)
[2025-01-15] MEDS ORDERED: PROPOFOL IV EMULSION 10 MG/ML 20 ML VIAL ONE (06:51)
[2025-01-15] MEDS ORDERED: SUCCINYLCHOLINE CHLORIDE 20 MG/ML 10ML VIAL ONE (06:52)
[2025-01-15] MEDS ORDERED: ONDANSETRON HCL INJ 2MG/ML 2ML 2 MG/ML VIAL ONE (07:33)
[2025-01-15] MEDS ORDERED: FAMOTIDINE 20 MG/2 ML VIAL IV ONE (07:33)
[2025-01-15] MEDS ORDERED: ACETAMINOPHEN 1000 MG/100 ML 100 ML IV ONE (07:34)
[2025-01-15] MEDS ORDERED: DEXMEDETOMIDINE HCL 2 ML ONE (08:08)
[2025-01-15] MEDS ORDERED: EPHEDRINE SULFATE INJ 50 MG/ML VIAL ONE (08:25)
[2025-01-15] MEDS ORDERED: NEOSTIGMINE 1 MG/ML 10ML VIAL ONE (08:33)
[2025-01-15] MEDS ORDERED: GLYCOPYRROLATE INJ 0.2 MG/ML VIAL ONE (08:33)
[2025-01-15] MEDS ORDERED: DIPHENHYDRAMINE HCL 25 MG CAP PO PRN (09:15)
[2025-01-15] MEDS ORDERED: ONDANSETRON HCL INJ 2MG/ML 2ML 2 MG/ML VIAL IV PRN (09:15)
[2025-01-15] MEDS ORDERED: ACETAMINOPHEN 1000 MG/100 ML IV PRN (09:15)
[2025-01-15] MEDS: FENTANYL CITRATE/PF 100MCG/2 ML INJ ONE (09:21)
[2025-01-15] MEDS: PHENAZOPYRIDINE HCL 100 MG TAB PO PRN (09:28)
[2025-01-15 09:35] LABS: BASOPHILS % 0.2 % (0.0-1.0); EOSINOPHILS % 1.5 % (0.0-6.0); LYMPHOCYTES % 25.1 % (18.0-39.1); MONOCYTES % 7.1 % (4.4-11.3); NEUTROPHILS % 65.8 % (38.7-80.0); RED CELL DISTRIBUTION WIDTH 13.1 % (11.7-14.4)
[2025-01-15 09:58] LABS: EST GLOMERULAR FILTRATION RATE 86.0 ML/MIN (>=60)
[2025-01-15] MEDS: GENTAMICIN 80MG/NS 100 ML 100 ML IV ONE (10:29)
[2025-01-15] MEDS: SODIUM CHLORIDE 0.9% 1000ML 1,000 ML IV SCH (11:02)
[2025-01-15] MEDS ORDERED: MAGNESIUM SULFATE 2GM/50ML IV ONE ×2 (11:15→12:30)
[2025-01-15] MEDS: PROPOFOL IV EMULSION 10MG/ML 100 ML ONE (11:41)
[2025-01-15] MEDS: MAGNESIUM SULFATE 2GM/50ML 50 ML IV ONE (12:33)
[2025-01-15] MEDS: ACETAMINOPHEN/CODEINE 300MG - 30MG TAB PO PRN (12:33)
[2025-01-15] MEDS ORDERED: TAMSULOSIN HCL 0.4 MG CAP PO SCH (15:00)
[2025-01-15] MEDS: SENNA-S TABLET PO SCH (17:44)
[2025-01-15] MEDS: LEVETIRACETAM 500 MG TAB PO SCH (17:44)
[2025-01-15] MEDS: GEMFIBROZIL 600 MG TAB PO SCH (17:45)
[2025-01-15] MEDS: TAMSULOSIN HCL 0.4 MG CAP PO SCH (17:45)
[2025-01-15] MEDS: ATORVASTATIN 20 MG TAB PO SCH (20:32)
[2025-01-16] VITALS (7 sets, daily range): BP systolic 132–151; BP diastolic 50–74; PULSE 63–84; RESP 16–20; TEMP 98.3–98.6; O2SAT 95–97
[2025-01-16 06:07] LABS: BASOPHILS % 0.1 % (0.0-1.0); EOSINOPHILS % 3.2 % (0.0-6.0); LYMPHOCYTES % 4.2 % (18.0-39.1); MONOCYTES % 8.0 % (4.4-11.3); NEUTROPHILS % 83.8 % (38.7-80.0); RED CELL DISTRIBUTION WIDTH 13.6 % (11.7-14.4)
[2025-01-16 06:32] LABS: EST GLOMERULAR FILTRATION RATE 64.0 ML/MIN (>=60)
[2025-01-16] MEDS: VALSARTAN 160 MG TAB PO SCH (09:09)
[2025-01-16] MEDS: MULTIVITAMINS/MINERALS TAB PO SCH (09:09)
[2025-01-16] MEDS: AMLODIPINE BESYLATE 5 MG TAB PO SCH (09:10)
[2025-01-16] MEDS: FAMOTIDINE 20 MG TAB PO SCH (09:10)
[2025-01-17] VITALS (9 sets, daily range): BP systolic 129–151; BP diastolic 65–85; PULSE 58–72; RESP 18–21; TEMP 97.6–98.9; O2SAT 95–100
[2025-01-17 05:36] LABS: BASOPHILS % 0.2 % (0.0-1.0); EOSINOPHILS % 10.1 % (0.0-6.0); LYMPHOCYTES % 14.4 % (18.0-39.1); MONOCYTES % 9.2 % (4.4-11.3); NEUTROPHILS % 65.9 % (38.7-80.0); RED CELL DISTRIBUTION WIDTH 13.3 % (11.7-14.4)
[2025-01-17 06:00] LABS: EST GLOMERULAR FILTRATION RATE 72.0 ML/MIN (>=60)
[2025-01-17] MEDS: HEPARIN SOD (PORCINE) 1000 UNIT/ML SDV ONE (19:47)
[2025-01-17] MEDS: SODIUM CHLORIDE 0.9% 1000ML 1,000 ML ONE (19:47)
[2025-01-18 03:10] VITALS: BP 159/73; PULSE 57; RESP 18; TEMP 97.6; O2SAT 98
[2025-01-18 05:44] LABS: BASOPHILS % 0.2 % (0.0-1.0); EOSINOPHILS % 10.6 % (0.0-6.0); LYMPHOCYTES % 17.1 % (18.0-39.1); MONOCYTES % 10.9 % (4.4-11.3); NEUTROPHILS % 61.0 % (38.7-80.0); RED CELL DISTRIBUTION WIDTH 13.0 % (11.7-14.4)
[2025-01-18 06:00] LABS: EST GLOMERULAR FILTRATION RATE 75.0 ML/MIN (>=60)
[2025-01-18 09:44] VITALS: BP 146/63; PULSE 57; RESP 18; TEMP 98.6; O2SAT 97
[2025-01-18 16:18] VITALS: BP 161/79; PULSE 82; RESP 18; TEMP 98.5; O2SAT 100
[2025-01-18 18:19] VITALS: BP 151/66; PULSE 66; RESP 18; TEMP 98.3; O2SAT 96
== END 2025-01-18 18:24 | disposition home or self-care (01) | DRG 713 ==
LOC: OR 05:20 → PACU V 09:05 → MED/SURG 10:10
PROVIDERS: ADMIT Urology; ATTEND Urology
PROC: 0TCB8ZZ Extirpation of Matter from Bladder, Via Natural or Artificial Opening Endoscopic (ICD-10-PCS; 2025-01-15)
PROC: 0T9B70Z Drainage of Bladder with Drainage Device, Via Natural or Artificial Opening (ICD-10-PCS; 2025-01-15)
PROC: BT141ZZ Fluoroscopy of Kidneys, Ureters and Bladder using Low Osmolar Contrast (ICD-10-PCS; 2025-01-15)
PROC: 0V508ZZ Destruction of Prostate, Via Natural or Artificial Opening Endoscopic (ICD-10-PCS; principal; 2025-01-15 07:14)
PROC: 0T7D8ZZ Dilation of Urethra, Via Natural or Artificial Opening Endoscopic (ICD-10-PCS; 2025-01-15 07:14)
DX: N40.1 Benign prostatic hyperplasia with lower urinary tract symptoms (principal); N13.8 Other obstructive and reflux uropathy; N35.911 Unspecified urethral stricture, male, meatal; R31.0 Gross hematuria; Z79.85 Long-term (current) use of injectable non-insulin antidiabetic drugs; Z88.2 Allergy status to sulfonamides; Z79.84 Long term (current) use of oral hypoglycemic drugs; Z79.82 Long term (current) use of aspirin
CPT/HCPCS: 36415; 71046; 76000; 80048; 82948; 83735; 85025; 87086; 88300; 93005; 94799; C1758; J0330; J0696; J1308; J1580; J1644; J2003; J2405; J2710; J3475; J7030

== ENCOUNTER 2025-01-25 08:12 | Emergency (ER) | payer MEDICARE, OTHER ==
[~2025-01-25] VITALS: Ht 177.8 cm; Wt 85.3 kg
[2025-01-25] MEDS ORDERED: CEFDINIR300 MG PO (09:36)
[2025-01-25 09:45] VITALS: PULSE 72; RESP 16; TEMP 98; O2SAT 94
== END 2025-01-25 09:47 | disposition home or self-care (01) ==
LOC: ER 08:35
DX: R31.9 Hematuria, unspecified (principal); R35.89 Other polyuria; Z98.890 Other specified postprocedural states; I10 Essential (primary) hypertension; E11.9 Type 2 diabetes mellitus without complications; E78.5 Hyperlipidemia, unspecified; K21.9 Gastro-esophageal reflux disease without esophagitis; G47.30 Sleep apnea, unspecified; F17.210 Nicotine dependence, cigarettes, uncomplicated
CPT/HCPCS: 87086; 99282